=== PATIENT | male | born 1965 | race Caucasian/White ===

== ENCOUNTER 2020-01-03 14:21 | Emergency (ER) | payer BC ==
[2020-01-03] MEDS ORDERED: KEFLEX500 M1 PO ×3 (14:44→18:30)
[2020-01-03 14:55] VITALS: BP 151/66
== END 2020-01-03 14:55 | disposition home or self-care (01) | DRG 603 ==
LOC: ED 14:21
DX: L03.113 Cellulitis of right upper limb (principal); L23.7 Allergic contact dermatitis due to plants, except food; L84 Corns and callosities

== ENCOUNTER 2020-01-11 10:37 | Emergency (ER) | payer BC ==
[~2020-01-11] VITALS: Ht 167.6 cm; Wt 68.0 kg
[~2020-01-11 10:37] MED LIST: KEFLEX500 M1 PO
[2020-01-11] MEDS ORDERED: BACTRIM DS1 TAB PO (11:08)
[2020-01-11 11:11] VITALS: BP 109/73
== END 2020-01-11 11:26 | disposition home or self-care (01) | DRG 607 ==
LOC: ED 10:37
DX: L25.9 Unspecified contact dermatitis, unspecified cause (principal); L08.9 Local infection of the skin and subcutaneous tissue, unspecified